=== PATIENT | female | born 1955 | race Caucasian/White ===

== ENCOUNTER 2017-06-23 15:35 | Emergency (ER) | payer MEDICARE ==
[~2017-06-23] VITALS: Ht 167.6 cm; Wt 96.3 kg
[~2017-06-23 15:35] MED LIST: CALC500T12 PO; DICL50TA11 PO; FENT1PAT8 TD; GABA-526 PO; LEVE250T5 PO; LORA1TAB PO; NAPR-688 PO; NIFE30TA66 PO; OXYC-281 PO; SERT50TA6 PO
[2017-06-23 15:39] VITALS: Ht 167.6 cm; Wt 96.3 kg
[2017-06-23 18:27] LABS: BASOPHILS % 0.7 % (0.0-2.0); EOSINOPHILS # 0.3 10^3/ul (0.0-0.5); EOSINOPHILS % 4.2 % (0.0-7.0); HEMATOCRIT 40.1 % (37.0-47.0); HEMOGLOBIN 12.8 g/dl (12.0-16.0); MEAN CORPUSCULAR HEMOGLOBIN 26.9 pg (29.0-33.0); MEAN CORPUSCULAR HGB CONC 31.9 g/dl (32.0-37.0); MEAN CORPUSCULAR VOLUME 84.2 fl (82.0-101.0); MEAN PLATELET VOLUME 9.9 fl (7.4-10.4); MONOCYTE # 0.4 10^3/ul (0.3-0.9); MONOCYTES % 6.9 % (0.0-11.0); NEUTROPHIL # 3.2 10^3/ul (1.6-7.5); NEUTROPHILS % 53.9 % (39.0-77.0); PLATELET COUNT 189 10^3/UL (140-415); RED BLOOD COUNT 4.76 10^6/ul (4.20-5.40); WHITE BLOOD COUNT 5.9 10^3/ul (4.8-10.8)
--- NOTE | 2017-06-23 18:37 | RADRPT ---
PROCEDURE: XR Chest. CLINICAL INDICATION: Chest pain. TECHNIQUE: Single frontal view. COMPARISON: None. FINDINGS: The lungs are clear. There is a left sided RESEARCH EXECUTIVE shunt catheter. A plate and screws is present in the c ervical spine. The heart size is normal. There is no pleural effusion. There is no pneumothorax. IMPRESSION: 1. Clear lungs. 2. Left sided RESEARCH EXECUTIVE shunt catheter. 3. Plate and screws in the cervical spine. 4. Otherwise unremarkable chest radiograph. RPTAT: QQ .William Chase MD, MD Date Time Electronically viewed and signed by .William Chase MD, MD on 06/23/2017 18:37 .R/
--- NOTE | 2017-06-23 18:40 | ERD ---
ER Documentation Chief Complaint Chief Complaint Sent from MD for eval Thoracic spine compression HPI This is a 61-year-old female with a past medical history of hypertension, chronic cervical spine radiculopathy status post previous fusion, now presenting with 1-2 months of progressive worsening upper thoracic back pain with lower chest and pleuritic chest pain for the last 1-2 weeks. The patient states that the shortness of breath got worse yesterday, which is what prompted her to schedule an appointment with her physician. The patient says shortness of breath, she states that when she takes deep breaths, she feels like it catches secondary to pain in the back. She was evaluated by her PCP today, who was concerned and wanted her to go to the emergency department to be evaluated for a thoracic spine pathology versus the possibility of a pulmonary embolism. The patient has had swelling of her legs in the past, but they are not swollen presently. She is never been diagnosed with a blood clot or bleeding disorder. The patient's fusion reportedly involved cervical spine 3 through 7. The patient denies feeling sick recently. The patient denies fever or chills. The patient has had no headache or vision changes. The patient denies lightheadedness or dizziness. The patient denies nausea or vomiting. The patient denies abdominal pain or changes to bowel movements or urination. The patient has had no focal deficits. The patient has had no weakness or numbness or tingling to the face or extremities. ROS All systems reviewed and are negative except as per history of present illness. Medications Home Meds Active Scripts Lorazepam* (Lorazepam*) 1 Mg Tablet, 1 MG PO Q8 for jerking, #10 TAB Prov:KIP CUEVAS 10/27/15 Reported Medications Nifedipine* (Procardia XL*) 30 Mg/Bottle Tab.osm.24, 30 MG PO DAILY, TAB.SA 10/27/15 Sertraline Hcl* (Sertraline Hcl*) 50 Mg Tablet, 50 MG PO DAILY, #30 10/27/15 Calcium Carbonate* ([place]-500*) 1 Tab Tablet, 1 TAB PO BID, TAB 10/27/15 Diclofenac Sodium* (Diclofenac Sodium*) 50 Mg Tablet.dr, 50 MG PO DAILY, #60 TAB 10/27/15 Naproxen* (Naproxen*) 500 Mg Tablet, 500 MG PO DAILY for PAIN, TAB 10/27/15 Oxycodone Hcl-Acetaminophen* (Percocet*) 5-325 Mg Tablet, 1 TAB PO QID Y for SEVERE PAIN LEVEL 7-10, TAB 10/27/15 Levetiracetam* (Levetiracetam*) 250 Mg Tablet, 250 MG PO QID, TAB 10/27/15 Gabapentin* (Gabapentin*) 600 Mg Tablet, 600 MG PO QID, #90 TAB 10/27/15 Fentanyl Patch* (Fentanyl Patch*) 25 Mcg/Hr Transdermal Patch, 1 PATCH TD Q72H, PATCH 10/27/15 Allergies Allergies: Coded Allergies: No Known Allergy (Unverified , 10/27/15) PMhx/Soc History of Surgery: Yes (C3-7 fusion) Anesthesia Reaction: No Hx Neurological Disorder: Yes (HEMIPHERESIS FROM NECK SURGERY. Seizures last 3 years ago) Hx Respiratory Disorders: No Hx Cardiac Disorders: Yes (Hypertension) Hx Psychiatric Problems: No Hx Miscellaneous Medical Probl: No Hx Alcohol Use: No Hx Substance Use: No Hx Tobacco Use: Yes (OCCASIONAL SMOKER) Smoking Status: Current some day smoker FmHx Family History: No coronary disease, No diabetes Physical Exam Vitals Vital Signs Date Time Temp Pulse Resp B/P Pulse Ox O2 Delivery O2 Flow Rate FiO2 06/23/17 18:37 97.1 67 20 142/81 95 Room Air 06/23/17 15:39 97.1 103 20 137/98 93 Physical Exam Const: No apparent distress, well-developed, well-nourished Head: Normocephalic, Atraumatic Eyes: Normal Conjunctiva. Extraocular movements intact. Pupils equal, round and reactive to light ENT: Normal External Ears, Nose and Mouth. Neck: Full range of motion. No meningismus. Resp: Clear to auscultation bilaterally, No wheezes, rales or rhonchi. Cardio: Mild tachycardia resolved during assessment. Regular rhythm. No murmurs, rubs or gallops Abd: Soft, non tender, non distended. Normal bowel sounds Skin: No petechiae or rashes Back: Thoracic spine tenderness. No CVA tenderness Ext: No cyanosis, or edema Neur: Awake and alert, oriented 4. Cranial nerves intact. No facial droop. Normal strength, sensation and coordination. Psych: Normal Mood and Affect Result Diagram: 11181406/23/17 181 Results 24 hrs Laboratory Tests Test 06/23/17 18:15 White Blood Count 5.910^3/ul Red Blood Count 4.7610^6/ul Hemoglobin 12.8g/dl Hematocrit 40.1% Mean Corpuscular Volume 84.2fl Mean Corpuscular Hemoglobin 26.9pg Mean Corpuscular Hemoglobin Concent 31.9g/dl Red Cell Distribution Width 13.0% Platelet Count 45649^3/UL Mean Platelet Volume 9.9fl Neutrophils % 53.9% Lymphocytes % 34.0% Monocytes % 6.9% Eosinophils % 4.2% Basophils % 0.7% Nucleated Red Blood Cells % 0.0/100WBC Neutrophils # 3.210^3/ul Lymphocytes # 2.010^3/ul Monocytes # 0.410^3/ul Eosinophils # 0.310^3/ul Basophils # 0.010^3/ul Nucleated Red Blood Cells # 0.010^3/ul Prothrombin Time 12.9Sec Prothrombin Time Ratio 1.0 INR International Normalized Ratio 0.97 Activated Partial Thromboplast Time 26.1Sec Sodium Level 147mmol/L Potassium Level 4.1mmol/L Chloride Level 106mmol/L Carbon Dioxide Level 28mmol/L Anion Gap 17 Blood Urea Nitrogen 17mg/dl Creatinine 0.68mg/dl Glucose Level 111mg/dl Calcium Level 9.4mg/dl Total Bilirubin 0.0mg/dl Direct Bilirubin 0.00mg/dl Indirect Bilirubin 0.0mg/dl Aspartate Amino Transf (AST/SGOT) 23IU/L Alanine Aminotransferase (ALT/SGPT) 39IU/L Alkaline Phosphatase 92IU/L Troponin I < 0.012ng/ml B-Type Natriuretic Peptide 71PG/ML Total Protein 7.0g/dl Albumin 4.4g/dl Globulin 2.60g/dl Albumin/Globulin Ratio 1.69 Lipase 56U/L Current Medications Medications (Trade) Dose Ordered Sig/Praneeth Route PRN Reason Start Time Stop Time Status Last Admin Dose Admin IV Flush 10 ml 10 ml STK-MED ONCE .ROUTE 06/23/17 18:58 06/23/17 18:59 DC 06/23/17 19:16 Sodium Chloride 100 ml @ ud STK-MED ONCE .ROUTE 06/23/17 18:58 06/23/17 18:59 DC 06/23/17 19:20 Iohexol (Omnipaque) 100 ml @ ud STK-MED ONCE .ROUTE 06/23/17 18:58 06/23/17 18:59 DC 06/23/17 19:21 Iohexol (Omnipaque 350mg/ ml) 50 ml STK-MED ONCE .ROUTE 06/23/17 18:58 06/23/17 18:59 DC 06/23/17 19:21 Acetaminophen (Tylenol Tab) 650 mg ONCE ONCE PO 06/23/17 20:00 06/23/17 20:01 DC 06/23/17 19:43 Metoclopramide HCl (Reglan) 10 mg ONCE ONCE IV 06/23/17 20:00 06/23/17 20:01 DC Diphenhydramine HCl 25 mg 25 mg ONCE ONCE IV 06/23/17 20:00 06/23/17 20:01 DC Sodium Chloride (NS) 500 ml @ 500 mls/hr Q1H ONCE IV 06/23/17 20:00 06/23/17 20:59 06/23/17 19:51 Ketorolac Tromethamine (Toradol) 15 mg ONCE STAT IV 06/23/17 19:53 06/23/17 19:54 DC Procedures/MDM MDM The patient's presentation warrants further investigation. The patient does appear to have pleuritic chest pain with back pain as well. During her course in the emergency department, she did admit to being weaned off all narcotic medications for her cervical and thoracic pains. She feels that perhaps the pains that she has been having over the last several months are related to not being on these medications. This is certainly a possibility. Given her overall presentation, I will evaluate the thoracic spine for any fracture or listhesis. I will also evaluate for the possibility of pulmonary embolism. That said, her tachycardia improved on her own after she got situated in the bed. She was always oxygenating well. She does not have any calf pain. She has not had any recent prolonged travel. She does not have findings consistent for pulmonary embolism, but I am worried about the pleuritic chest pain. Aortic dissection is also possibility, but the patient's vital signs are stable and her pain is chronic in nature. I have decreased suspicion for this. LABS The patient's blood work was obtained and reviewed. The patient's CBC shows no leukocytosis and no left shift. The patient is afebrile and does not appear systemically ill. I do not suspect a systemic infection. The patient is not anemic today. The patient's platelet count is unremarkable. The patient's CMP shows no signs of metabolic or electrolyte emergencies. The patient has unremarkable renal and hepatic function testing. The patient's troponin is negative. The patient's lipase is negative. EKG EKG read by me: Rate/Rhythm: Regular rate, sinus arrhythmia at a rate of 69 Intervals: Normal [place]: Normal Impression: This arrhythmia, no evidence of acute ischemia IMAGING CXR 1. Clear lungs. 2. Left sided CONTRACT PROJECT MANAGER shunt catheter. 3. Plate and screws in the cervical spine. 4. Otherwise unremarkable chest radiograph. Electronically viewed and signed by .William Chase MD, MD on 06/23/2017 18:37 CTA Chest 1. No evidence for pulmonary embolus. 2. No aortic aneurysm or dissection. 3. Minimal atherosclerotic vascular calcifications. 4. Mild atelectasis. 5. Degenerative changes thoracic spine. 6. Partially visualized lower cervical spine anterior fusion hardware. 7. Prominent fatty liver. Status post cholecystectomy. Electronically viewed and signed by .Pablo Stevens MD, MD on 06/23/2017 19:45 TREATMENT/DISPOSITION The patient's workup is reassuring. The patient was given medications for a headache. I have high suspicion for worsening chronic pains as she is no longer taking her narcotic medications. I do not see any obvious fracture dislocation. There is no evidence of aortic dissection or pulmonary embolism on the CT scan. There is no evidence of pneumonia. There is no evidence of pneumothorax. The patient will be notified about her fatty liver, but this is not an emergency. The patient will follow up with her doctor for further evaluation as an outpatient. At this time, I feel that the patient stable for discharge. The patient will need follow-up with his primary care physician in 2-3 days. The patient will be given strict precautions with which to return to the emergency department. The patient's blood pressure was elevated at greater than 120/80 while in the emergency department. The patient was otherwise stable with no evidence of hypertensive urgency or emergency or end organ damage. The patient does not require admission for blood pressure control. I have discussed with the patient the risks of hypertension. I have advised the patient to follow up with the primary care physician for outpatient monitoring and treatment for hypertension in 2-3 days. I have instructed the patient to return to the ER for any new or worsening symptoms including chest pain, shortness of breath, headache, blurred vision, confusion, nausea, vomiting or LOC. Disclaimer: Inadvertent spelling and grammatical errors are likely due to EHR/ dictation software use and do not reflect on the overall quality of patient care. Note that the electronic time recorded on this note does not necessarily reflect the actual time of the patient encounter. Departure Diagnosis: Primary Impression: Shortness of breath Additional Impressions: Thoracic back pain Chronicity: chronic Back pain laterality: midline Qualified Code: M54.6 - Chronic midline thoracic back pain Fatty liver Condition: Stable AMINATA SERRANO MD Jun 23, 2017 18:40 AMINATA SERRANO MD Jun 23, 2017 18:40
[2017-06-23 18:44] LABS: INR 0.97; PROTIME 12.9 Sec (12.2-14.2)
[2017-06-23 18:45] LABS: PARTIAL THROMBOPLASTIN TIME 26.1 Sec (25.0-35.0)
[2017-06-23 18:48] LABS: ALANINE AMINOTRANSFERASE 39 IU/L (13-69); ALBUMIN 4.4 g/dl (3.3-4.9); ALBUMIN/GLOBULIN RATIO 1.69; ALKALINE PHOSPHATASE 92 IU/L (42-121); ANION GAP 17 (8-16); ASPARTATE AMINO TRANSFERASE 23 IU/L (15-46); BLOOD UREA NITROGEN 17 mg/dl (7-20); CALCIUM 9.4 mg/dl (8.4-10.2); CARBON DIOXIDE 28 mmol/L (21-31); CHLORIDE 106 mmol/L (97-110); CREATININE 0.68 mg/dl (0.44-1.00); GLUCOSE 111 mg/dl (70-220); POTASSIUM 4.1 mmol/L (3.5-5.1); SODIUM 147 mmol/L (135-144)
[2017-06-23] MEDS ORDERED: IOHEXOL 350MG/ML 50 ML BTL ONE (18:58)
[2017-06-23] MEDS ORDERED: SOD CHLORIDE 0.9% 100 ML ONE (18:58)
[2017-06-23] MEDS ORDERED: IOHEXOL 100 ML ONE (18:58)
[2017-06-23 18:59] LABS: B-TYPE NATRIURETIC PEPTIDE 71 PG/ML (0-125)
[2017-06-23 19:00] LABS: TROPONIN-I < 0.012 ng/ml (0.00-0.12)
--- NOTE | 2017-06-23 19:46 | RADRPT ---
PROCEDURE: CT Chest with IV contrast. CLINICAL INDICATION: Chest pain TECHNIQUE: CT scan of the chest was performed on a multidetector scanner. The patient was scanned following the uncomplicated intravenous administration of 120 cc of Omnipaque 350 contrast. 3D, co mila and sagittal reformatted images were obtained from the axial source images. Images were review ed on a high-resolution PACS workstation. The total exam CTDlvol = 42 mGy and DLP = 728 mGy-cm. One of the following 3 dose reduction techniques were used: Automated exposure control; adjustment of th e mA and/or kV according to patient size; or use of iterative reconstruction technique. DICOM image s are available. COMPARISON: Chest x-ray 06/23/2017 FINDINGS: No filling defects are identified within the pulmonary arteries to suggest pulmonary artery thrombos is. Thoracic aorta is normal caliber without aneurysm or dissection. There are minimal atheroscler otic calcifications. There is no mediastinal or hilar lymphadenopathy or mass. Heart is normal size . No pericardial fluid or thickening. There is mild dependent atelectasis. No focal infiltrate. There is no pleural effusion. There is no pneumothorax. There are no fractures. There are degenerative changes throughout the thoracic spine. Anterior fusi on hardware is noted at the lower cervical spine. Imaging obtained through the upper abdomen demonstrates prominent 17.3 cm liver and liver is mildly hypodense/fatty. The patient status post cholecystectomy.. IMPRESSION: 1. No evidence for pulmonary embolus. 2. No aortic aneurysm or dissection. 3. Minimal atherosclerotic vascular calcifications. 4. Mild atelectasis. 5. Degenerative changes thoracic spine. 6. Partially visualized lower cervical spine anterior fusion hardware. 7. Prominent fatty liver. Status post cholecystectomy. RPTAT: HMVK .Pablo Stevens MD, MD Date Time Electronically viewed and signed by .Pablo Stevens MD, MD on 06/23/2017 19:45 .K/
[2017-06-23] MEDS ORDERED: KETOROLAC 15 MG INJ IV STA (19:53)
[2017-06-23] MEDS ORDERED: METOCLOPRAMIDE 10 MG INJ IV ONE (20:00)
[2017-06-23] MEDS ORDERED: DIPHENHYDRAMINE 50 MG INJ IV ONE (20:00)
[2017-06-23] MEDS ORDERED: SOD CHLORIDE 0.9% 500 ML IV ONE (20:00)
[2017-06-23] MEDS ORDERED: ACETAMINOPHEN 325 MG TAB PO ONE (20:00)
[2017-06-23] MEDS ORDERED: SERT-165 PO (20:32)
[2017-06-23] MEDS ORDERED: ASCO500C7 PO (20:37)
[2017-06-23] MEDS ORDERED: VIT1TABL77 PO (20:37)
[2017-06-23] MEDS ORDERED: GINGKO BILOBA PO (20:37)
[2017-06-23] MEDS ORDERED: VITA1TAB83 PO (20:37)
[2017-06-23] MEDS ORDERED: MULTI PO (20:37)
[2017-06-23] MEDS ORDERED: CHOL200073 PO (20:37)
[2017-06-23 20:46] VITALS: BP 135/81; PULSE 72; RESP 20; TEMP 98
== END 2017-06-23 20:48 | disposition home or self-care (01) ==
LOC: E/R 15:35
DX: M54.6 Pain in thoracic spine (principal); R06.02 Shortness of breath; K76.0 Fatty (change of) liver, not elsewhere classified; I10 Essential (primary) hypertension; F17.210 Nicotine dependence, cigarettes, uncomplicated
CPT/HCPCS: 36415; 71010; 71275; 80053; 83690; 83880; 84484; 85025; 85610; 85730; 96374; 99285; J1200; J1885; J2765; J7040; Q9967